=== PATIENT | male | born 1980 | race Caucasian/White ===

== ENCOUNTER 2016-10-08 22:50 | Emergency (ER) | payer OTHER ==
[~2016-10-08] VITALS: Ht 170.2 cm; Wt 103.4 kg
[2016-10-08 22:55] VITALS: BP 150/79
== END 2016-10-08 23:40 | disposition home or self-care (01) ==
LOC: ER 22:52
DX: H00.015 Hordeolum externum left lower eyelid (principal); Z88.0 Allergy status to penicillin
CPT/HCPCS: A4606; Z7610

== ENCOUNTER 2018-02-13 21:55 | Emergency (ER) | payer BC, OTHER ==
[~2018-02-13] VITALS: Ht 167.6 cm; Wt 99.8 kg
--- NOTE | 2018-02-13 22:10 | NUR ---
PT BIBSELF C/O RIGHT KNEE PAIN X 2 WEEKS. PAIN GOT WORSE TODAY. DENIES ANY TRAUMA. PT ON MONITOR IN BED 1. WILL CONTINUE TO MONITOR.
--- NOTE | 2018-02-13 22:25 | NUR ---
RADIOLOGY AT BEDSIDE FOR XRAY
[2018-02-13] MEDS ORDERED: KETOROLAC TROMETHAMINE INJ 30 MG/ML VIAL ONE (22:26)
[2018-02-13] MEDS: KETOROLAC TROMETHAMINE INJ 60 MG/2 ML VIAL IM ONE (22:31)
--- NOTE | 2018-02-13 23:05 | NUR ---
Patient discharged to home in stable condition. Written and verbal after care instructions given. Patient verbalizes understanding of instruction.
[2018-02-13 23:06] VITALS: BP 158/92
== END 2018-02-13 23:14 | disposition home or self-care (01) ==
LOC: ER 22:02
DX: M10.061 Idiopathic gout, right knee (principal); Z98.890 Other specified postprocedural states; Z88.0 Allergy status to penicillin
CPT/HCPCS: 73564-TC; A4606; J1885; Z7610

== ENCOUNTER 2018-02-14 16:02 | Outpatient (CLI) | payer BC, OTHER ==
[2018-02-14 16:06] VITALS: BP 152/97
== END 2018-02-14 23:59 | disposition home or self-care (01) ==
LOC: MSC 16:02
PROVIDERS: ATTEND Internal Medicine
DX: M10.9 Gout, unspecified (principal); E66.9 Obesity, unspecified; I10 Essential (primary) hypertension; Z88.0 Allergy status to penicillin

== ENCOUNTER 2018-10-16 23:19 | Emergency (ER) | payer BC, OTHER ==
[~2018-10-16] VITALS: Ht 170.2 cm; Wt 98.9 kg
[2018-10-17] MEDS ORDERED: oxyCODONE/APAP (5/325 MG) 1 UDTAB TABLET ONE (00:25)
[2018-10-17] MEDS ORDERED: ONDANSETRON 4 MG TAB.RAPDIS ONE (00:25)
[2018-10-17] MEDS ORDERED: IBUPROFEN 600 MG TABLET PO ONE ×2 (00:25→00:30)
[2018-10-17] MEDS ORDERED: LIDOCAINE 2%-EPI 1:100,000 30 ML VIAL ONE (00:29)
[2018-10-17] MEDS ORDERED: ONDANSETRON 4 MG TAB.RAPDIS SL ONE (00:30)
[2018-10-17] MEDS ORDERED: SODIUM BICARBONATE 5 ML VIAL TP ONE (00:30)
[2018-10-17] MEDS ORDERED: LIDOCAINE 1%-EPI 1:100,000 20 ML VIAL TP ONE (00:30)
[2018-10-17] MEDS ORDERED: oxyCODONE/APAP (5/325 MG) 1 UDTAB TABLET PO ONE (00:30)
[2018-10-17] MEDS ORDERED: LIDOCAINE 2%-EPI 1:100,000 30 ML VIAL TP ONE (02:00)
[2018-10-17] MEDS ORDERED: COLCHICINE 0.6 MG TABLET ONE (03:56)
[2018-10-17] MEDS ORDERED: COLCHICINE 0.6 MG TABLET PO ONE (04:00)
--- NOTE | 2018-10-17 04:08 | NUR ---
Patient discharged to home in stable condition. Rx and Written and verbal after care instructions given. Patient verbalizes understanding of instruction. pt was advised not to drive
[2018-10-17 04:15] VITALS: BP 131/76
== END 2018-10-17 04:16 | disposition home or self-care (01) ==
LOC: ER 23:22
DX: M10.062 Idiopathic gout, left knee (principal); Z98.890 Other specified postprocedural states; Z88.0 Allergy status to penicillin
CPT/HCPCS: 20610; 36415; 89060; 99284; A6403; J3490; Q0162

== ENCOUNTER 2018-11-20 16:27 | Emergency (ER) | payer BC, OTHER ==
[~2018-11-20] VITALS: Ht 170.2 cm; Wt 97.5 kg
--- NOTE | 2018-11-20 16:50 | NUR ---
CAME IN FOR LEFT KNEE PAIN 09/04 PS x 1 WEEK, TRIPPED AND FALL Sunday11/18/18, TO ER BED 13, HOOKED TO MONITOR, AWAITING MD HEATH.
--- NOTE | 2018-11-20 17:10 | NUR ---
OMAR HALL AT BEDSIDE
[2018-11-20] MEDS ORDERED: IBUPROFEN 400 MG TABLET ONE (17:20)
[2018-11-20] MEDS ORDERED: IBUPROFEN 400 MG TABLET PO ONE (17:30)
--- NOTE | 2018-11-20 19:00 | NUR ---
Patient discharged to home in stable condition, assisted to waiting room while waiting for cd copy omage of xray. Written and verbal after care instructions given. Patient verbalizes understanding of instruction.
[2018-11-20 19:30] VITALS: BP 141/101
== END 2018-11-20 19:31 | disposition home or self-care (01) ==
LOC: ER 16:27
DX: M25.562 Pain in left knee (principal); M10.9 Gout, unspecified; Z98.890 Other specified postprocedural states; Z88.0 Allergy status to penicillin
CPT/HCPCS: 73564-TC

== ENCOUNTER 2019-04-18 02:48 | Emergency (ER) | payer BC, OTHER ==
[~2019-04-18] VITALS: Ht 170.2 cm; Wt 97.5 kg
[2019-04-18 02:54] VITALS: BP 145/84
--- NOTE | 2019-04-18 03:02 | NUR ---
PT CAME TO THE ED C/O SHOULDER PAIN. 05/05. WORSENS WHEN MOVING. PT AAOX4, VSS, AMBULATORY, RR MONIQUE AND UNLABORED ON RA W/ NAD NOTED. PT CONNECTED TO THE MONITOR AND POX
--- NOTE | 2019-04-18 03:12 | NUR ---
XRAY AT BEDSIDE
== END 2019-04-18 03:37 | disposition home or self-care (01) ==
LOC: ER 02:50
DX: M25.512 Pain in left shoulder (principal); Z98.890 Other specified postprocedural states; Z88.0 Allergy status to penicillin
CPT/HCPCS: 73030-TC

== ENCOUNTER 2019-05-23 08:49 | Emergency (ER) | payer BC, OTHER ==
[~2019-05-23] VITALS: Ht 167.6 cm; Wt 101.6 kg
[2019-05-23 09:00] VITALS: BP 146/98
--- NOTE | 2019-05-23 09:19 | NUR ---
Patient discharged to home in stable condition. Written and verbal after care instructions given. Patient verbalizes understanding of instruction.
== END 2019-05-23 09:18 | disposition home or self-care (01) ==
LOC: ER 08:52
DX: Z02.79 Encounter for issue of other medical certificate (principal); M10.9 Gout, unspecified; Z98.890 Other specified postprocedural states; Z88.0 Allergy status to penicillin

== ENCOUNTER 2020-07-01 13:23 | Outpatient (CLI) | payer BC, OTHER | END 2020-07-01 23:59 | disposition home or self-care (01) | LOC: MRI 13:23 | PROVIDERS: ATTEND Student in an Organized Health Care Education/Training Program | DX: M23.52 Chronic instability of knee, left knee (principal); M25.561 Pain in right knee | CPT/HCPCS: 73721-TC ==

== ENCOUNTER 2021-09-05 13:07 | Emergency (ER) | payer BC, OTHER ==
[~2021-09-05] VITALS: Ht 170.2 cm; Wt 109.3 kg
--- NOTE | 2021-09-05 13:14 | NUR ---
Patient came in to the er c/o pressure like pain in the chest radiating to left arm since 8am 7/10 pain scale. On room air, breathing evenly and unlabored. Connected to the monitor and pulse ox. Kept comfortable, will continue to monitor accordingly.
--- NOTE | 2021-09-05 13:24 | NUR ---
IV LINE ESTABLISHED ON LAC #18, BLOOD DRAWN AND SENT TO LAB
[2021-09-05 14:22] LABS: BASOPHILS % (AUTO) 0.2 % (0.0-2.0); CALCIUM, SERUM 9.3 mg/dL (8.5-10.1); CARBON DIOXIDE 30 mmol/L (21-32); CHLORIDE 101 mmol/L (98-107); CREATININE 0.8 mg/dL (0.6-1.3); EOSINOPHILS % (AUTO) 1.3 % (0.0-6.0); GLUCOSE 140 mg/dL (74-106); HEMATOCRIT 41 % (39-51); HEMOGLOBIN 14.6 g/dL (13.5-17.5); LYMPHOCYTES # (AUTO) 2.4 K/uL (0.8-4.8); LYMPHOCYTES % (AUTO) 23.4 % (20.0-44.0); MEAN CORPUSCULAR HGB CONC 35 g/dl (31.0-36.0); MEAN CORPUSCULAR VOLUME 88 fL (80-96); MONOCYTES # (AUTO) 0.5 K/uL (0.1-1.30); MONOCYTES % (AUTO) 4.5 % (2.0-12.0); NEUTROPHILS # (AUTO) 7.3 K/uL (1.8-8.9); NEUTROPHILS % (AUTO) 70.6 % (43.0-81.0); PLATELET COUNT (AUTO) 340 K/uL (150-450); POTASSIUM 3.6 mmol/L (3.5-5.1); RED BLOOD CELL COUNT(AUTO) 4.66 MIL/uL (4.5-6.0); SODIUM SERUM 137 mmol/L (136-145); UREA NITROGEN, BLOOD 10 mg/dL (7-18); WHITE BLOOD COUNT (AUTO) 10.3 K/uL (4.3-11.0)
[2021-09-05] MEDS ORDERED: IBUPROFEN 600 MG TABLET PO ONE (14:30)
[2021-09-05] MEDS ORDERED: IBUPROFEN 600 MG TABLET ONE (14:59)
[2021-09-05] MEDS ORDERED: IBUP-1955 PO (17:02)
[2021-09-05 17:18] VITALS: BP 135/77
--- NOTE | 2021-09-05 17:18 | NUR ---
Patient discharged to home in stable condition. Written and verbal after care instructions given. Patient verbalizes understanding of instruction.IV removed. Catheter intact and site benign. Pressure and 4x4 applied to site. No bleeding noted.
== END 2021-09-05 17:18 | disposition home or self-care (01) ==
LOC: ER 13:10
DX: R07.89 Other chest pain (principal); I10 Essential (primary) hypertension; R94.31 Abnormal electrocardiogram [ECG] [EKG]; M10.9 Gout, unspecified; Z98.890 Other specified postprocedural states; Z88.0 Allergy status to penicillin
CPT/HCPCS: 36415; 71045-TC; 80048-TC; 84484-TC; 85025-TC

== ENCOUNTER 2022-12-13 10:43 | Outpatient (CLI) | payer BC, OTHER ==
[~2022-12-13 10:43] MED LIST: IBUP-1955 PO
[2022-12-13 13:10] LABS: BASOPHILS # (AUTO) 0.1 K/uL (0.0-0.2); BASOPHILS % (AUTO) 0.5 % (0.0-2.0); EOSINOPHILS # (AUTO) 0.1 K/uL (0.0-0.7); EOSINOPHILS % (AUTO) 0.8 % (0.0-6.0); HEMATOCRIT 46 % (39-51); HEMOGLOBIN 15.5 g/dL (13.5-17.5); LYMPHOCYTES # (AUTO) 2.8 K/uL (0.8-4.8); LYMPHOCYTES % (AUTO) 23.9 % (20.0-44.0); MEAN CORPUSCULAR HEMOGLOBIN 31 PG (26.0-33.0); MEAN CORPUSCULAR HGB CONC 34 g/dl (31.0-36.0); MEAN CORPUSCULAR VOLUME 90 fL (80-96); MONOCYTES # (AUTO) 0.7 K/uL (0.1-1.30); MONOCYTES % (AUTO) 5.9 % (2.0-12.0); NEUTROPHILS % (AUTO) 68.9 % (43.0-81.0); PLATELET COUNT (AUTO) 342 K/uL (150-450); RED BLOOD CELL COUNT(AUTO) 5.06 MIL/uL (4.5-6.0); RED CELL DISTRIBUTION WIDTH 13.6 % (11.5-15.0); WHITE BLOOD COUNT (AUTO) 11.6 K/uL (4.3-11.0)
[2022-12-13 13:14] LABS: APPEARANCE,URINE CLEAR (CLEAR); BILIRUBIN,URINE NEGATIVE (NEGATIVE); BLOOD, URINE NEGATIVE Ery/uL (NEGATIVE); COLOR,URINE YELLOW (YELLOW); KETONES,URINE NEGATIVE (NEGATIVE); LEUKOCYTE ESTERASE ,URINE NEGATIVE (NEGATIVE); NITRITE, URINE NEGATIVE (NEGATIVE); PROTEIN,URINE NEGATIVE (NEGATIVE); UGLUCOSE NEGATIVE (NEGATIVE); UROBILINOGEN,URINE 0.2 EU/dL (0.2)
[2022-12-13 13:30] LABS: ALBUMIN 3.4 g/dL (3.4-5.0); BILIRUBIN,TOTAL 0.5 mg/dL (0.2-1.0); CALCIUM, SERUM 9.8 mg/dL (8.5-10.1); CREATININE 0.5 mg/dL (0.6-1.3); POTASSIUM 5.1 mmol/L (3.5-5.1); TOTAL PROTEIN, SERUM 8.4 g/dL (6.4-8.2)
[2022-12-13 14:02] LABS: PROSTATE SPECIFIC ANTIGEN SCR 1.15 ng/mL (0.00-4.00)
== END 2022-12-13 23:59 | disposition home or self-care (01) ==
LOC: LAB 10:43
PROVIDERS: ATTEND Family Medicine
DX: R35.89 Other polyuria (principal)
CPT/HCPCS: 36415; 80053-TC; 84153-TC; 85025-TC

== ENCOUNTER 2023-11-20 08:26 | Emergency (ER) | payer BC, OTHER ==
[~2023-11-20] VITALS: Ht 170.2 cm; Wt 102.1 kg
[2023-11-20] MEDS ORDERED: ERYT3.5O9 LEFTEYE (08:51)
[2023-11-20] MEDS ORDERED: METH4TAB3 PO (08:51)
[2023-11-20] MEDS ORDERED: INDO-12 PO (08:51)
[2023-11-20 09:00] VITALS: BP 128/78; TEMP 97.8; O2SAT 98
== END 2023-11-20 09:01 | disposition home or self-care (01) ==
LOC: ER 08:28
DX: H00.014 Hordeolum externum left upper eyelid (principal); M10.9 Gout, unspecified; M17.11 Unilateral primary osteoarthritis, right knee; Z88.0 Allergy status to penicillin

== ENCOUNTER 2024-04-14 08:57 | Day surgery (SDC) | payer BC, OTHER ==
[~2024-04-14 08:57] MED LIST changes: +ERYT3.5O9 LEFTEYE; +INDO-12 PO; +METH4TAB3 PO
[2024-04-14 09:36] LABS: BASOPHILS # (AUTO) 0.1 K/uL (0.0-0.2); BASOPHILS % (AUTO) 0.7 % (0.0-2.0); EOSINOPHILS % (AUTO) 0.4 % (0.0-6.0); HEMATOCRIT 42 % (39-51); HEMOGLOBIN 14.5 g/dL (13.5-17.5); LYMPHOCYTES # (AUTO) 1.9 K/uL (0.8-4.8); MEAN CORPUSCULAR HEMOGLOBIN 30 PG (26.0-33.0); MEAN CORPUSCULAR HGB CONC 35 g/dl (31.0-36.0); MEAN CORPUSCULAR VOLUME 88 fL (80-96); MONOCYTES # (AUTO) 0.7 K/uL (0.1-1.30); MONOCYTES % (AUTO) 5.9 % (2.0-12.0); NEUTROPHILS # (AUTO) 9.2 K/uL (1.8-8.9); PLATELET COUNT (AUTO) 307 K/uL (150-450); RED CELL DISTRIBUTION WIDTH 14.1 % (11.5-15.0)
[2024-04-14] MEDS ORDERED: ANESTHESIA TRAY IN PYXIS 1 EA TRAY MC ONE (09:46)
[2024-04-14 09:54] LABS: ALBUMIN 3.5 g/dL (3.4-5.0); BILIRUBIN,TOTAL 0.8 mg/dL (0.2-1.0); CREATININE 0.9 mg/dL (0.6-1.3); POTASSIUM 3.9 mmol/L (3.5-5.1); TOTAL PROTEIN, SERUM 7.8 g/dL (6.4-8.2)
[2024-04-14 10:12] LABS: INR 1.09 (0.91-1.10); PARTIAL THROMBOPLASTIN TIME 27.3 SEC (24.3-34.3); PROTHROMBIN TIME 11.5 SECS (9.2-11.1)
[2024-04-14] MEDS ORDERED: SIMETHICONE SUSP 40 MG/0.6 ML BOTTLE ONE (12:03)
== END 2024-04-14 13:20 | disposition home or self-care (01) ==
LOC: DS 08:57
PROVIDERS: ATTEND Internal Medicine Gastroenterology
DX: K57.30 Diverticulosis of large intestine without perforation or abscess without bleeding (principal); K64.8 Other hemorrhoids; K29.50 Unspecified chronic gastritis without bleeding; B96.81 Helicobacter pylori [H. pylori] as the cause of diseases classified elsewhere; I44.5 Left posterior fascicular block; K21.9 Gastro-esophageal reflux disease without esophagitis; E11.9 Type 2 diabetes mellitus without complications; Z79.1 Long term (current) use of non-steroidal anti-inflammatories (NSAID); Z88.0 Allergy status to penicillin; Z79.899 Other long term (current) drug therapy
CPT/HCPCS: 36415; 43239; 45378; 71045; 80053; 85025; 85610; 85730; 88305; 88312; 88313; 93005; J1885; J2405; J2704; J3490; J7030